=== PATIENT | male | born 1950 | race African-American/Black ===

== ENCOUNTER 2020-10-17 12:33 | Outpatient (CLI) | payer MEDICARE, OTHER ==
[2020-10-17 14:27] LABS: Bilirubin Neg (Negative); Blood, Urine Negative (Negative); Clarity Clear (Clear); Glucose, Urine (Dipstick) Normal (Negative); Ketone, Urine Negative (Negative); Leukocyte Negative (Negative); Nitrite Negative (Negative); Protein, Urine (Dipstick) Negative (Neg-Trace); Specific Gravity, Urine 1.015 (1.002-1.036); pH, Urine 6.5 (5.0-9.0)
[2020-10-17 14:55] LABS: INR-International Normal Ratio 0.9; Prothrombin Time 10.3 sec (9.5-12.1)
[2020-10-17 15:08] LABS: Anion Gap 12 mmol/L (10-20); BUN (Urea Nitrogen) 14 mg/dL (8.4-25.7); Calc. Creatinine Clearance 0 mL/min (70-130); Calcium 9.6 mg/dL (7.8-10.44); Carbon Dioxide 25 mmol/L (23-31); Chloride 105 mmol/L (98-107); Glucose 89 mg/dL (80-115); Potassium 4.1 mmol/L (3.5-5.1); Sodium 138 mmol/L (136-145)
[2020-10-17 15:11] LABS: #Eosinphils 0.1 10x3/uL (0.0-0.5); #Monocytes 0.5 10x3/uL (0.0-1.1); #Neutrophils 2.7 10x3/uL (1.5-8.4); %Basophils 0.4 % (0.0-2.0); %Eosinophils 1.7 % (0.0-6.0); %Lymphocytes 36.1 % (18.0-47.0); %Monocytes 8.7 % (0.0-10.0); %Neutrophils 52.9 % (40.0-75.0); Hemoglobin 13.1 g/dL (13.5-17.5); Mean Corpuscular HGB CONC 33.3 g/dL (32.0-36.0); Mean Corpuscular Hemoglobin 31.5 pg (27.0-33.0); Mean Corpuscular Volume 94.5 fl (81.2-95.1); Mean Platelet Volume 9.2 fl (7.4-10.4); Platelet Count 261 10x3/uL (150-450); Red Blood Cell (RBC) Count 4.16 10x6/uL (4.32-5.72); White Blood Cell (WBC) Count 5.2 10x3/uL (3.5-10.5)
[2020-10-17 15:32] LABS: RBC/HPF None Seen HPF (0-3)
[2020-10-17 20:41] LABS: SARS-CoV-2 PCR by NAA Not Detected (NotDetected)
== END 2020-10-17 12:34 | disposition home or self-care (01) ==
LOC: LABBT 12:33
PROVIDERS: ATTEND Orthopaedic Surgery
DX: Z01.818 Encounter for other preprocedural examination (principal); M16.12 Unilateral primary osteoarthritis, left hip; Z20.822 Contact with and (suspected) exposure to COVID-19
CPT/HCPCS: 80048; 81001; 85025; 85610; 87081; 93005; U0003; U0005; 93010

== ENCOUNTER 2020-10-29 09:07 | Inpatient (IN) | payer MEDICARE, OTHER ==
[2020-10-21 13:54] VITALS: BMI 23.7
[2020-10-29] MEDS ORDERED: Sodium Chloride 0.9% 100 ML ONE (10:22)
[2020-10-29] MEDS ORDERED: Tranexamic Acid 1,000 MG/10 ML VIAL ONE (10:22)
[2020-10-29] MEDS ORDERED: Vancomycin 1.5 GRAM/300 ML BAG 1.5 GM in Premix Bag 1 BAG IVPB SCH (10:45)
[2020-10-29] MEDS ORDERED: Midazolam HCl 2 mg/2 ml Vial ONE (12:50)
[2020-10-29] MEDS ORDERED: Fentanyl 100 MCG/2 ML VIAL ONE ×2 (12:50→13:56)
[2020-10-29] MEDS ORDERED: diphenhydrAMINE 50 MG/ML VIAL IVP PRN (13:15)
[2020-10-29] MEDS ORDERED: traMADol HCl 50 MG TAB PO PRN ×2 (13:15)
[2020-10-29] MEDS ORDERED: Naloxone HCl 0.4 mg/ml Vial IV PRN (13:15)
[2020-10-29] MEDS ORDERED: Hydrocerin (Eucerin) Cream 120 gm Jar TOP PRN (13:15)
[2020-10-29] MEDS ORDERED: Promethazine HCl 25 MG SUPP PR PRN (13:15)
[2020-10-29] MEDS ORDERED: Naloxone HCl 0.4 mg/ml Vial IVP PRN (13:15)
[2020-10-29] MEDS ORDERED: HYDROcodone/Acetaminophen 5/325 mg Tablet PO PRN ×2 (13:15)
[2020-10-29] MEDS ORDERED: Bupivacaine 0.25% 10 ML VIAL EPIDURAL PRN (13:15)
[2020-10-29] MEDS ORDERED: Ondansetron PF 4 MG/2 ML Vial IVP PRN ×2 (13:15→13:39)
[2020-10-29] MEDS ORDERED: diphenhydrAMINE 50 MG/ML VIAL IM PRN (13:15)
[2020-10-29] MEDS ORDERED: diphenhydrAMINE 25 MG CAP PO PRN ×2 (13:15→13:39)
[2020-10-29] MEDS ORDERED: Promethazine HCl 25 MG/ML VIAL IM PRN ×2 (13:15→13:39)
[2020-10-29] MEDS ORDERED: Zolpidem Tartrate 5 MG TAB PO PRN ×2 (13:15→13:39)
[2020-10-29] MEDS ORDERED: Acetaminophen 325 MG TAB PO PRN ×2 (13:16→13:39)
[2020-10-29] MEDS ORDERED: HYDROcodone/Acetaminophen 10/325 mg Tablet PO PRN ×2 (13:39)
[2020-10-29] MEDS ORDERED: Lidocaine 1.5% w/Epi 1:200K 30 ML VIAL (Epid Use) ONE (14:26)
[2020-10-29] MEDS ORDERED: Lidocaine 1% PF 5 ML VIAL ONE (14:26)
[2020-10-29] MEDS ORDERED: PHENYLEPHRINE-NS 100 MCG/ML 10 ML SYRINGE ONE (14:26)
[2020-10-29] MEDS ORDERED: PROPOFOL 200 MG/20 ML VIAL ONE (14:26)
[2020-10-29] MEDS ORDERED: ePHEDrine 50 MG/ML VIAL ONE (14:26)
[2020-10-29] MEDS ORDERED: Rocuronium Bromide 10 MG/ML (10ML VIAL) ONE (14:26)
[2020-10-29] MEDS ORDERED: Glycopyrrolate 0.2 MG/ML 5 ML SYRINGE ONE (14:26)
[2020-10-29] MEDS ORDERED: Promethazine HCl 25 MG/ML VIAL IM/IV PRN (17:00)
[2020-10-29] MEDS ORDERED: Ondansetron HCl/PF 4 MG/2 ML Vial IVP PRN (17:00)
[2020-10-29] MEDS ORDERED: CEFAZOLIN 2 GM in Premix Bag 1 BAG IVPB SCH (18:00)
[2020-10-29] MEDS: Ketorolac Tromethamine 30 MG/ML VIAL IVP SCH ×2 (18:30→23:21)
[2020-10-29] MEDS: Aspirin 81 mg Enteric Coated Tablet PO SCH (21:09)
[2020-10-29] MEDS: Senokot S 8.6-50 MG TAB PO SCH (21:10)
[2020-10-29] MEDS: Atorvastatin Calcium 20 MG TAB PO SCH (21:10)
[2020-10-29] MEDS: Ferrous Gluconate 324 MG TAB PO SCH (21:10)
[2020-10-29] MEDS: CEFAZOLIN 2 GM in Premix Bag 1 BAG IVPB SCH (21:10)
[2020-10-30] MEDS: Ketorolac Tromethamine 30 MG/ML VIAL IVP SCH ×3 (05:36→18:17)
[2020-10-30] MEDS: CEFAZOLIN 2 GM in Premix Bag 1 BAG IVPB SCH (05:36)
[2020-10-30 06:08] LABS: Hemoglobin 11.7 g/dL (14.0-18.0); Mean Corpuscular HGB CONC 33.3 g/dL (32.0-36.0); Mean Corpuscular Hemoglobin 33.1 pg (27.0-31.0); Mean Corpuscular Volume 99.3 fL (78.0-98.0); Mean Platelet Volume 6.9 fL (7.4-10.4); Platelet Count 230 thou/uL (130-400); RBC Distribution Width 12.9 % (11.5-14.5); Red Blood Cell (RBC) Count 3.53 mill/uL (4.70-6.10); White Blood Cell (WBC) Count 7.6 thou/uL (4.8-10.8)
[2020-10-30] MEDS: Fentanyl 5 mcg/Bup 0.075% Cadd 100 ML EPIDURAL SCH (08:48)
[2020-10-30] MEDS: Senokot S 8.6-50 MG TAB PO SCH ×2 (08:53→20:09)
[2020-10-30] MEDS: Aspirin 81 mg Enteric Coated Tablet PO SCH ×2 (08:53→20:09)
[2020-10-30] MEDS: Ferrous Gluconate 324 MG TAB PO SCH ×2 (08:54→20:09)
[2020-10-30] MEDS: Amlodipine 5 MG TAB PO SCH (08:54)
[2020-10-30] MEDS: Multivitamin W/ Minerals 1 TAB PO SCH (08:54)
[2020-10-30] MEDS: Atorvastatin Calcium 20 MG TAB PO SCH (20:09)
[2020-10-31] MEDS: Fentanyl 5 mcg/Bup 0.075% Cadd 100 ML EPIDURAL SCH (00:56)
[2020-10-31] MEDS: Ketorolac Tromethamine 30 MG/ML VIAL IVP SCH ×3 (01:09→12:06)
[2020-10-31] MEDS: Ferrous Gluconate 324 MG TAB PO SCH (08:36)
[2020-10-31] MEDS: Aspirin 81 mg Enteric Coated Tablet PO SCH (08:36)
[2020-10-31] MEDS: Amlodipine 5 MG TAB PO SCH (08:36)
[2020-10-31] MEDS: Multivitamin W/ Minerals 1 TAB PO SCH (08:36)
[2020-10-31] MEDS: Senokot S 8.6-50 MG TAB PO SCH (08:36)
[2020-10-31 11:21] VITALS: BP 111/67; TEMP 98.3
== END 2020-10-31 14:35 | disposition home or self-care (01) | DRG 470 ==
LOC: SDC 09:07 → SJJU 13:39
PROVIDERS: ADMIT Orthopaedic Surgery; ATTEND Orthopaedic Surgery
PROC: 0SRB04A Replacement of Left Hip Joint with Ceramic on Polyethylene Synthetic Substitute, Uncemented, Open Approach (ICD-10-PCS; principal; 2020-10-29)
DX: M16.12 Unilateral primary osteoarthritis, left hip (principal); Z20.822 Contact with and (suspected) exposure to COVID-19; M25.752 Osteophyte, left hip; I10 Essential (primary) hypertension; E78.5 Hyperlipidemia, unspecified; Z79.899 Other long term (current) drug therapy
CPT/HCPCS: 36415; 85027; J0690; J1885; J2001; J2250; J2704; J3010; J3370; J3490